=== PATIENT | female | born 1950 | race Caucasian/White ===

== ENCOUNTER → 2018-04-09 | Outpatient (REF) | payer MEDICARE, OTHER | LOC: M LAB REF 18:37 | DX: L98.8 Other specified disorders of the skin and subcutaneous tissue (principal) | CPT/HCPCS: 88305 ==

== ENCOUNTER → 2021-01-15 | Outpatient (CLI) | payer MEDICARE, OTHER ==
--- NOTE | 2021-01-15 16:58 | REP ---
INDICATION: LT OVARION CYST. COMPARISON: No prior ultrasound exams TECHNIQUE: Transvesical and transvaginal scanning FINDINGS: The uterus measures 3.9 x 1.9 x 2.9 cm. The parenchymal echo pattern is within normal limits. The endometrial echo complex is suboptimally visualized due to the echodensity of the uterus. There is no free fluid Neither ovary could be visualized transvesical air transvaginally. Urinary bladder measures 11 x 9 x 10 cm. IMPRESSION: Limited examination as described above. Pre and post gadolinium enhanced pelvic MRI is recommended if a pelvic abnormality is of clinical concern. <Electronically signed by Ivan Sequeira > 01/15/21 [id number]
== END ==
LOC: M RAD 15:17
PROVIDERS: ATTEND Internal Medicine
DX: N83.202 Unspecified ovarian cyst, left side (principal)

== ENCOUNTER 2021-03-29 09:08 | Emergency (ER) | payer MEDICARE, OTHER ==
[~2021-03-29] VITALS: Ht 165.1 cm; Wt 59.1 kg
[2021-03-29] MEDS ORDERED: AMIT10TA7 (09:47)
--- NOTE | 2021-03-29 10:09 | REP ---
INDICATION: fall COMPARISON: None. TECHNIQUE: Five views left knee. FINDINGS: There is nondisplaced transverse fracture of the lower pole of the patella. There is no other evidence of acute fracture or dislocation. There is slight narrowing of the lateral patellofemoral joint. IMPRESSION: Nondisplaced transverse fracture lower pole patella. <Electronically signed by Luis Griggs > 03/29/21 [id number]
[2021-03-29] MEDS ORDERED: CRUTMIS25 XX (12:54)
[2021-03-29 13:13] VITALS: BP 137/74
== END 2021-03-29 13:16 | disposition home or self-care (01) ==
LOC: M ED 09:08
DX: S82.002A Unspecified fracture of left patella, initial encounter for closed fracture (principal); W01.0XXA Fall on same level from slipping, tripping and stumbling without subsequent striking against object, initial encounter; Y92.009 Unspecified place in unspecified non-institutional (private) residence as the place of occurrence of the external cause; Y93.9 Activity, unspecified; Y99.9 Unspecified external cause status